=== PATIENT | male | born 1990 | race Caucasian/White ===

== ENCOUNTER 2016-05-14 17:46 | Emergency (ER) | payer MEDICAID ==
--- NOTE | 2016-05-14 18:11 | EDPHY ---
H & P Stated Complaint: Left lower teeth hurt. Time Seen by Provider: 05/14/16 18:01 HPI/ROS: Chief complaint: Possible tooth infection History of present illness: This is a 25-year-old male who presents to the emergency department for a possible tooth infection. Patient reports the onset of pain in the left, lower mouth last night. He has had associated swelling. He states this feels like a tooth infection as he has had multiple ones in the past. No report of swelling of the face or neck, no difficulty opening closing the mouth, no difficulty swallowing, no difficulty breathing. - Personal History Current Tetanus Diphtheria and Acellular Pertussis (TDAP): Yes Tetanus Vaccine Date: < 5 years - Medical/Surgical History Hx Asthma: No Hx Chronic Respiratory Disease: No Hx Diabetes: No Hx Cardiac Disease: No Hx Renal Disease: No Hx Cirrhosis: No Hx Alcoholism: No Hx HIV/AIDS: No Hx Splenectomy or Spleen Trauma: No Other PMH: PMH: concussion. PSH: depression - Social History Smoking Status: Never smoked - Physical Exam Exam: General Appearance: Alert, nontoxic. Eyes: Pupils equal and round no injection. ENT: Poor dental hygiene. There is mild edema anterior to the left lower premolars. There is no trismus, no hoarseness, no drooling, no stridor. Respiratory: Chest is non tender, lungs are clear to auscultation. Cardiac: regular rate and rhythm Musculoskeletal: Neck is supple and non tender. Extremities have full range of motion and are non tender. Skin: No rashes or lesions. No erythema or edema of the face or neck. Constitutional: Initial Vital Signs Temperature (C) 36.7 C 05/14/16 17:47 Heart Rate 81 05/14/16 17:47 Respiratory Rate 16 05/14/16 17:47 Blood Pressure 117/61 05/14/16 17:47 O2 Sat (%) 98 05/14/16 17:47 O2 Delivery Mode Room Air Allergies/Adverse Reactions: No Known Allergies Allergy (Verified 11/02/15 23:04) Home Medications: Medication Instructions Recorded Amoxicillin Trihydrate 500 mg PO Q8 7 Days 05/14/16 [Amoxicillin 500mg cap] Medical Decision Making ED Course/Re-evaluation: Patient seen under the supervision of my secondary supervising physician Dr. Alex Pabon. Patient presents to the emergency department concerned he is developing a dental infection. By history and physical exam no evidence of complications such as airway compromise. He will be started on antibiotics. He states he has talked with his dentist and has an appointment next week. He is asked to keep this appointment. Home care is discussed. Return precautions are given. Patient voiced understanding and agreement with plan. Departure - Departure Disposition: Home, Routine, Self-Care Clinical Impression: Dental abscess Condition: Good Instructions: Dental Abscess (ED) Additional Instructions: Follow-up with your dentist for continued evaluation and care Use ibuprofen 600 mg 4 times a day for the next 2-3 days for pain If symptoms worsen or new symptoms develop return to the emergency department for recheck Prescriptions: Amoxicillin Trihydrate [Amoxicillin 500mg cap] 500 mg PO Q8 7 Days
[2016-05-14 19:05] VITALS: BP 109/83; PULSE 80; RESP 18; TEMP 98.2; O2SAT 96
== END 2016-05-14 19:05 | disposition home or self-care (01) ==
DX: K04.7 Periapical abscess without sinus (principal)

== ENCOUNTER 2016-06-09 20:15 | Emergency (ER) | payer MEDICAID ==
[2016-06-09 20:22] VITALS: TEMP 97.7
--- NOTE | 2016-06-09 20:29 | EDPHY ---
H & P Time Seen by Provider: 06/09/16 20:23 HPI/ROS: CHIEF COMPLAINT: Head trauma HISTORY OF PRESENT ILLNESS: This patient is a 25 year old male who presents to the Emergency Department following head trauma 3 days ago. He was working when a concrete slab was dropped on his head. He was wearing a hard hat at the time that did shatter in the event. He did not lose consciousness. Following the accident, he reports intermittent dizziness, a stiff neck, persistent moderate to severe headache, and multiple episodes of epistaxis. His primary complaints upon arrival are moderate head and neck pain not alleviated by Aleve. He denies any additional complaints or injuries at this time. No pertinent medical history. REVIEW OF SYSTEMS: Constitutional: No weakness Eyes: No visual changes or eye pain ENT: +lip lacerations, no dental trauma Neck: +neck pain and stiffness Respiratory: No shortness of breath Cardiac: No chest pain Gastrointestinal: No abdominal pain, no vomiting Back: No pain or injury Genitourinary: No hematuria Musculoskeletal: No joint pain Skin: No lacerations Neurological: +headache, +insomnia Past Medical/Surgical History: Denies. Social History: Works in construction. Non-smoker. Smoking Status: Never smoked Physical Exam: General Appearance: Alert, no distress Head: Atraumatic, no swelling or tenderness Eyes: No conjunctival erythema, PERRLA, EOMI ENT, Mouth: No hemotympanum, no oral trauma, no bony tenderness, crusty drainage and erythema at the corners of lips Neck: Non-tender, full range of motion without pain Respiratory: No chest wall tenderness, lungs clear bilaterally Cardiovascular: Regular rate and rhythm Abdomen: Abdomen is soft and non tender Skin: No lacerations, no abrasions Back: No midline T/L/S tenderness Extremities: Pelvis is stable and nontender; no extremity tenderness or deformity, full range of motion without pain Neurological: A&Ox3, normal motor function, normal sensory exam, cranial nerves intact Psychiatric: Mood and affect normal Constitutional: Initial Vital Signs Temperature (C) 36.5 C 06/09/16 20:20 Heart Rate 84 06/09/16 20:20 Respiratory Rate 16 06/09/16 20:20 Blood Pressure 125/61 H 06/09/16 20:20 O2 Sat (%) 97 06/09/16 20:20 O2 Delivery Mode Room Air Allergies/Adverse Reactions: No Known Allergies Allergy (Verified 06/09/16 20:19) Home Medications: Medication Instructions Recorded Aleve 06/09/16 Mupirocin 2% [Bactroban 2%] 1 sho TP BID #1 ointtube 06/09/16 Medical Decision Making - Diagnostics Imaging: Study: CT of the head Indication: Pain, trauma Results: CT scan of the head was obtained. The results of the study are: The study was read by the radiologist, . I viewed the images myself on the PACS system. ED Course/Re-evaluation: Plan for CT of the head, given significant trauma and persistent moderate to severe headache. CT scan the head and cervical spine are negative. Results were discussed with patient. Concussion instructions given. Differential Diagnosis: Differential diagnosis includes though it is not limited to fracture, intracranial hemorrhage, pneumothorax, hemothorax, intra-abdominal hemorrhage. Departure - Departure Disposition: Home, Routine, Self-Care Clinical Impression: Impetigo Neck strain Qualifiers: Encounter type: initial encounter Qualified Code(s): S16.1XXA - Strain of muscle, fascia and tendon at neck level, initial encounter Head injury Qualifiers: Encounter type: initial encounter Qualified Code(s): S09.90XA - Unspecified injury of head, initial encounter Condition: Good Instructions: Cervical Strain (ED), Head Injury (ED), Impetigo (ED) Additional Instructions: 1. Rest and avoid strenuous activity until your symptoms have subsided. 2. Take Ibuprofen as directed every 6 hours as needed for pain. 3. Follow-up with a primary care provider if your symptoms do not improve within the next 5-7 days. If you do not have a regular PCP, we have referred you to our on-call provider, Dr. Eduardo Govea. 4. Return to the Emergency Department if you experience nausea and vomiting, worsening headache, slurred speech, difficulty walking, vision changes, or other serious concerns. Referrals: Eduardo Govea DO [Medical Doctor] - As per Instructions Prescriptions: Mupirocin 2% [Bactroban 2%] 1 sho TP BID #1 ointtube
[2016-06-09 21:30] VITALS: BP 118/67; PULSE 78; RESP 14; O2SAT 98
== END 2016-06-09 21:22 | disposition home or self-care (01) ==
DX: S16.1XXA Strain of muscle, fascia and tendon at neck level, initial encounter (principal); S09.90XA Unspecified injury of head, initial encounter; L01.00 Impetigo, unspecified; W20.8XXA Other cause of strike by thrown, projected or falling object, initial encounter; Y92.69 Other specified industrial and construction area as the place of occurrence of the external cause; Y99.0 Civilian activity done for income or pay; Y93.89 Activity, other specified

== ENCOUNTER 2016-10-19 18:29 | Emergency (ER) | payer MEDICAID ==
[2016-10-19 18:33] VITALS: RESP 16; TEMP 97.9
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
[2016-10-19 20:09] VITALS: BP 111/70; PULSE 64; O2SAT 97
== END 2016-10-19 20:09 | disposition home or self-care (01) ==
DX: S16.1XXA Strain of muscle, fascia and tendon at neck level, initial encounter (principal); V44.6XXA Car passenger injured in collision with heavy transport vehicle or bus in traffic accident, initial encounter; Y92.410 Unspecified street and highway as the place of occurrence of the external cause

== ENCOUNTER 2016-12-26 22:24 | Emergency (ER) | payer MEDICAID ==
[2016-12-26 22:50] VITALS: TEMP 98.1
[2016-12-26] MEDS ORDERED: ACETAMINOPHEN 500 MG TAB PO ONE (23:40)
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
[2016-12-27] MEDS ORDERED: IBUPROFEN 600 MG TAB PO ONE (00:38)
[2016-12-27] MEDS ORDERED: IBUPROFEN 200 MG TAB PO ONE ×2 (00:38→00:40)
[2016-12-27 00:45] VITALS: RESP 16
[2016-12-27 01:55] VITALS: BP 113/63; PULSE 76; O2SAT 96
== END 2016-12-27 01:55 | disposition home or self-care (01) ==
DX: S09.90XA Unspecified injury of head, initial encounter (principal); S16.1XXA Strain of muscle, fascia and tendon at neck level, initial encounter; V18.2XXA Unspecified pedal cyclist injured in noncollision transport accident in nontraffic accident, initial encounter